=== PATIENT | female | born 1960 | race Caucasian/White ===

== ENCOUNTER → 2017-02-28 | Outpatient (CLI) | payer BC ==
[~2017-02-28] VITALS: Ht 167.6 cm; Wt 99.3 kg
[~2017-02-28] MED LIST: ASPIR 8181 M1 PO; AVAPRO300 MG PO; CRESTOR20 MG PO; FISH OIL 1,0001 EAC7 PO; HYDROCHLOROTHIA25 MG PO; LEVO-T112 MCG PO; ULORIC40 MG PO
== END | disposition home or self-care (01) ==
LOC: AMB 08:42
DX: D12.2 Benign neoplasm of ascending colon (principal); D12.5 Benign neoplasm of sigmoid colon; D12.3 Benign neoplasm of transverse colon; K64.8 Other hemorrhoids; N02.8 Recurrent and persistent hematuria with other morphologic changes; I10 Essential (primary) hypertension; E78.1 Pure hyperglyceridemia; E78.00 Pure hypercholesterolemia, unspecified; E03.9 Hypothyroidism, unspecified; M47.16 Other spondylosis with myelopathy, lumbar region; Z68.36 Body mass index [BMI] 36.0-36.9, adult; E66.09 Other obesity due to excess calories; Z79.82 Long term (current) use of aspirin; Z79.899 Other long term (current) drug therapy; K21.9 Gastro-esophageal reflux disease without esophagitis
CPT/HCPCS: 88305; J1100; J2250; J2405